=== PATIENT | female | born 2005 | race Caucasian/White ===

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

== ENCOUNTER 2025-07-03 18:05 | Emergency (ER) | payer MEDICAID, SELFPAY ==
--- OUTSIDE RECORDS SUMMARY | 2024-07-17 10:00 | XMS_ITS ---
Author Organization [facility] Address [address] [place] [address] Care Team Providers Care Supervisor Malted Milk Name Role Phone Chris Robles Primary Care Provider Chris Robles Unavailable Unavailable REASON FOR VISIT Mood Swings Encounters Encounter Location Date Provider Diagnosis [facility] [address] [place] [address] 07/17/2024 Chris Robles Plan Of Treatment No Information Progress Notes * Tootie PERALESDOB:2005 ( 20 yo F)Acc No.[id number]:07/17/2024 Progress Notes Patient: Tootie SMITH Provider: Germaine Robles MD :2005 A ge:19 Y S ex:Female Date:07/17/2024 Address:[id number] Subjective: * Chief Complaints: * 1 . Mood Swings. * Medical History: Objective: * Vitals: Assessment: Plan: * Treatment: * * Electronic signature of Lionel Robles MD FAAP on 07/03/2025 at 06:24 PM EDT Sign off status: Pending * Provider: Germaine Robles MD Date: Generated for Printi ng/Faxing/eTransmitting on: 06:24 PM EDT
--- OUTSIDE RECORDS SUMMARY | 2024-12-23 17:30 | XMS_ITS ---
Author Organization [facility] Address [address] [facility] [address] [place] [address] Care Team Providers Care Airline Hostess Name Role Phone Chris Robles Primary Care Provider Chris Robles Unavailable Unavailable Migration, Provider Unavailable Unavailable REASON FOR VISIT Multum To Medispan Conversion Encounter Medications Medication SIG (Take, Route, Fr equency, Duration) Notes Start Date End Date Status Erythromycin 5 MG/GM 1 sher in each affec johnna eye 4 times a day Active Encounters Encounter Location Date Provider Diagnosis [facility] [address] [facility] [address] [place] [address] 12/23/2024 Provider Migration Plan Of Treatment No Information Progress Notes * SOLEDADTootieDOB:2005 ( 20 yo F)Acc No.[id number]:12/23/2024 Patient: Tootie SMITH Provider: Sona cortes Migration :2005 A ge:19 Y S ex:Female Date:12/23/2024 Address:[address] [id number] Pcp:Chris Robles Subjective: * Chief Complaints: * 1 . Multum To Medispan Conversion Encounter. * Medical History: * Medications: T aking Erythromycin 5 MG/GM Ointment 1 sher in each affected eye 4 times a day Objective: * Vitals: Assessment: Plan: * Treatment: * * Electronic signature of Prov ider Migration on 07/03/2025 at 06:24 PM EDT Sign off status: Pending * Provider: Sona cortes Migration Date: 0 12/23/2024 Generated for Steve quach/Mayra/Clarence on: 1 06:24 PM EDT
[2025-07-03 18:08] VITALS: BP 132/70; PULSE 63; RESP 18; TEMP 36.4; O2SAT 100; BMI 23.0
--- OUTSIDE RECORDS SUMMARY | 2025-07-03 18:24 | XMS_ITS | Patient Health Record ---
Author Organization [facility] Address [address] [place] [address] Care Team Providers Care Livestock Ranch Hand Name Role Phone Chris Robles Primary Care Provider [phone] Chris Robles Unavailable Unavailable Eileen Higuera Unavailable [phone] Migration, Provider Unavailable Unavailable Allergies No Known Allergies Results Component Value Reference Range Notes Rapid Strep Reviewed date:12/28/2024 03:40:19 PM Interpretation:Negative Performing Lab: Notes/Report: Negative CULTURE, THROAT (394) Reviewed date:01/01/2025 11:48:52 AM Interpretation: Performing Lab:[facility], [facility] [address] [facility] Thomas Salcedo Notes/Report: NON-FASTING CULTURE, THROAT SEE NOTE CULTURE, THROAT Micro Number: [id number] Test Status: Final Specimen Source: Throat Specimen Quality: Adequate Result: Heavy growth of Beta-hemolytic Streptococcus, not group A,C or G Beta-hemolytic streptococci are predictably susceptible to Penicillin and other beta-lactams. Susceptibility testing not routinely performed. Please contact the laboratory within 3 days if susceptibility testing is desired. COMMENT: Normal oropharyngeal yris also present. Reason For Referral Reason Medical Records - DD S Referral Organization [facility] BRIAN MATHIS Referring Provider First Name Chris Referring Provider Last Name Margaret Referring Provider Speciality Internal M edicine Referral Priority Routine Medications Medication SIG (Take, Route, Frequency, Duration) Notes Start Date End Date Status predniSONE 20 MG 3 tabs orally once a day for two days, then 2 daily for 2 days, then one daily for two days; Duration: 6 day(s) 04/11/2025 Active Triamcinolone Acetonide 0.5 % 1 sher applied topically 2 times a day; Duration: 7 day(s) 04/11/2025 Active Fexofenadine HCl 180 MG 1 tab(s) orally once a day; Duration: 30 day(s) 04/11/2025 Active Famotidine 20 MG 1 tablet at bedtime as needed Orally twice a day; Duration: 10 days 04/11/2025 Active Problems Problem Type SNOMED Code ICD Code Onset Dates Problem Status W/U Status Risk Notes Problem Seasonal allergic rhinitis (096530798) Seasonal allergic rhinitis (J30.2) Active confirmed Problem Asthma without status asthmaticus (61307548) RAD (reactive airway disease) (J45.909) Active confirmed Vital Signs Heart Rate 74 /min 04/11/2025 Temperature 97.6 degrees Fahrenheit 04/11/2025 Blood pressure diastolic 60 mm Hg 04/11/2025 Height 62.2 in 04/11/2025 Blood pressure systolic 96 mm Hg 04/11/2025 Weight 124.4 lbs 04/11/2025 BMI 22.6 kg/m2 04/11/2025 Encounters Encounter Location Date Provider Diagnosis [facility] [address] [place] [address] 12/23/2024 Provider Migration [facility] [address] [place] [address] 12/28/2024 Eileen McNees Sore throat J02.9 and Tonsillitis J03.90 [facility] [address] [place] [address] 04/11/2025 Chris Besson Hives L50.9 and Irritant contact dermatitis due to plants, except food L24.7 Assessments Encounter Date Diagnosis (ICD Code) Assessment Notes Treatment Notes Treatment Clinical Notes Section Notes 04/11/2025 Irritant contact dermatitis due to plants, except food (ICD-10 - L24.7) 04/11/2025 Hives (ICD-10 - L50.9) 12/28/2024 Sore throat (ICD-10 - J02.9) 12/28/2024 Tonsillitis (ICD-10 - J03.90) Rapid strep negative, however 3-4+ exudative tonsils and moderately tender LAD. Broad spectrum coverage pending CX. Prescribed antibiotics as stated above and stressed importance of finishing complete course of antibiotics. Do not let anyone drink after the patient. Throw away toothbrush after abx complete. Discussed etiology and expected course of illness. Continue supportive care with PRN antipyretics. Encourage PO hydration. 04/11/2025 Other Patient appears to have poison eleonora, diffuse and spread in nature. No rash on face. no other systemic symptoms. Patient has tried OTC treatment without any improvement of symptoms. Rx sent for oral steroids and topical steroids. return precautions discussed. Patient was understanding of the plan. Plan Of Treatment Pending Test Test Name Order Date N-Urinalysis 11/02/2007 H-THROAT CULTURE 08/06/2011 H-STREP SCREEN (RAPID) 08/06/2011 H-STREP SCREEN (RAPID) 01/02/2010 Insurance Providers Payer Name Payer Address Payer Phone Subscriber Number Group Number Insured Name Patient Relationship to Insured Coverage Start Date Coverage End Date [employer] [address] [place] [address] [id number] Tootie Rowe Self - patient is the insured Medical (General) History Medical History History ICD Code RAD Seasonal allergies Surgical History Surgery Date(Month/Year) rt hand pinky surgery 2020 Hospitalization History Reason Date(Month/Year) -[facility] 04/2023
--- OUTSIDE RECORDS SUMMARY | 2025-07-03 18:25 | XMS_ITS | Patient Health Record ---
Author Organization [facility] Address [address] [place] [address] Care Team Providers Care Supervisor Blood Name Role Phone papi peres Primary Care Provider Unavailabl e Reason For Referral No Information Problems Problem Type SNOMED Code ICD Code Onset Dates Problem Status W/U Status Risk Notes Problem Mild intermittent asthma (713500776) Mild intermittent asthma, unspecified whether complicated (J45.20) Active confirmed Plan Of Treatment No Information Insurance Providers Payer Name Payer Address Payer Phone Subscriber Number Group Number Insured Name Patient Relationship to Insured Coverage Start Date Coverage End Date [facility] MED[facility] [address] [address] [place] [phone] [id number] JARVIS PERALES Self - patient is the insured Medical (General) History Medical History History ICD Code slight mental disability asthma Surgical History Surgery Date(Month/Year) finger surgery Jul 2018
--- NOTE | 2025-07-03 18:30 | ED_ITS ---
<Statement entered by Prosper Guzman DO - 07/03/25 19:19> I was consulted by the PETAR, and we discussed the complexity of problems being addressed. I approved the treatment and management plan for this patient's care in the emergency department, thus performing a substantive portion of the medical decision making. I independently evaluated this patient as well. She states that for prolonged period of time she has had tooth decay of the left mandibular molar. She states that this is causing her significant amounts of pain and she is fearing that there is a developing infection. She has established follow-up with a dentist who is planning to evaluate her for dental intervention. There is no evidence of periapical abscess or fluctuance along the gumline to suggest periapical abscess versus gingival abscess on exam. There is a large decayed portion of the tooth which is questionable chipped tooth versus deep dental carry. We discussed with the patient options for pain control including viscous lidocaine, NSAIDs, and dental blocks. She would like to proceed with a dental block. I assisted the PETAR with performing a inferior alveolar nerve block on the left. Patient tolerated this procedure well and achieved complete anesthesia. We opted to treat the patient with antibiotics and have strongly advised her to follow-up with her dentist. Prosper Guzman DO Discharge Plan Disposition Patient Disposition: Home, Self-Care Condition: Good Prescriptions Prescriptions: New amoxicillin-pot clavulanate 875-125 mg tablet 1 tab PO BID 7 Days Qty: 14 0RF No Action amoxicillin-pot clavulanate 875-125 mg Tablet 1 tab PO Q12H Qty: 20 0RF Referrals Follow up/Referrals: Chris Robles MD [Primary Care Provider, Internal Medicine] - See instructions Activity Restrictions/Add. Instructions Additional Instructions/Restrictions: Please follow-up with your dental provider in the upcoming days/weeks. Please return to the emergency department with any worsening signs or symptoms. Your nerve block may provide relief for up to 5 to 6 hours, you may experience numbness and tingling in your left side of your jaw/face for 5 to 6 hours. Please take your antibiotic medication as prescribed twice daily for 7 days with food. Please utilize ibuprofen and Tylenol as needed for symptomatic relief. Clinical Impressions Clinical Impression: Pain due to dental caries Instructions Patient Instructions: DI for Tooth Decay, DI for Dental Pain Print Language Print Language: Swazi Discharge ED Provider: Prosper Guzman General Adult HPI General Chief complaint: PAIN Stated complaint: left side tooth pain Time Seen by Provider: 07/03/25 18:15 Mode of Arrival: Ambulatory Source of Information: Patient and Relative Description of Symptoms (Recalled from ER Triage Doc. by RN): Pt c/o pain in left jaw area that radiates into the left eye and ear. History of Present Illness HPI narrative: 20-year-old female presents the emergency department with left-sided dental/tooth pain, that has been ongoing for the last 1 to 2 months, patient that she had a dental appointment 1 to 2 months ago, was told she needed some work done on that side, has not yet followed up. Patient denies any fever chills chest pain shortness of breath nausea vomiting constipation diarrhea, no abdominal pain, no urinary type symptomatology, patient is a current everyday smoker (vapes), denies alcohol or drug use, patient has no other real relevant past medical history takes no other medications daily at home. Initial triage vitals are unremarkable. Please note that above description of symptoms, in this electronic medical record under categorization of recalled from ER triage doctor by RN are reflective of an initial nursing assessment, however, is not reflective of my full history and physical exam that was personally taken and clarified. Consequentially, this preceding description of symptoms, which may include the patient's categorized chief complaint in the EMR, do not reflect my personal clinical impression, and the ultimate description of history of present illness and patient stated complaints should be deferred to this section of the note. Unless stated otherwise or congruent with this section of the note, additional signs, symptoms, or incongruence should be interpreted as inaccurate with my clinical impression. Onset (ago): month(s) Related Data Previous Rx's ?Medication ?Instructions ?Recorded amoxicillin 875 mg-potassium 1 tab PO Q12H #20 tabs clavulanate 125 mg tablet amoxicillin 875 mg-potassium 1 tab PO BID 7 days #14 t abs 07/03/25 clavulanate 125 mg tablet Allergies Allergy/AdvReac Type Severity Reaction Status Date / Time No Known Allergies Allergy Verified 11/08/23 09:56 [facility] Disclaimer: The information contained in this section may have been updated after the patient was seen, as this information can be updated by other users. Medical History (Updated 07/03/25 @ 18:51 by LAUREL Alexandre) No significant past medical history Social History (Updated 10/07/23 @ 22:17 by Reuben Tolliver MD) Smoking Status: Current every day smoker alcohol intake: never current occupational status: other Travel in the last 8 weeks?: None Have you lived/traveled outside [place] in past 30 days?: No Contact w/someone who lives/traveled outside [place] past 30 days?: No Exposure to someone with infectious disease in past 14 days?: No Do you have a fever (greater than 100.4 F or 38 C)?: No Have you tested positive for COVID-19?: No Exposed to someone with COVID-19 in past 14 days?: No Do you have a sore throat?: No Do you have a cough?: No Do you have any weakness?: No Do you have any diarrhea?: No Are you experiencing any unusual bleeding?: No Do you have any muscle aches/pain?: No Do you have any abdominal pain?: No Are you experiencing loss of taste or smell?: No ROS Obtained: Yes All systems reviewed & no additional complaints except as documented Physical Exam General General appearance: alert and in no apparent distress Head Head exam: atraumatic and normocephalic Eye Eye exam: Present PERRL and EOMI ENT ENT exam: Present normal oropharynx, mucous membranes moist and other (Patient has a first premolar on the left, that has some obvious poor dentition, area of avulsion of tooth, no periodontal or periapical abscess to be amicable to drainage, uvula midline, normal oropharynx, no oropharyngeal edema/erythema.) Neck Neck exam: Present normal inspection Chest Chest inspection: Present normal inspection and symmetric chest wall rise Respiratory Respiratory exam: Present normal lung sounds bilaterally; Absent respiratory distress Cardiovascular Cardiovascular exam: Present regular rate and normal rhythm Abdominal Exam Abdominal exam: Present soft; Absent tenderness Extremities Exam Extremities exam: Present normal inspection Neurological Exam Neurological exam: Present alert and oriented X3 Psychiatric Psychiatric exam: Present normal affect Skin Skin exam: Present warm and dry Medical Decision Making Medical Records Medical records reviewed: Yes I reviewed the patient's medical records. Screening: Per USPSTF and CDC recommendations, given the prevalence of disease in our region, it is our hospital?s policy to screen for HIV and viral Hepatitis for all patients aged 18 and over and those with ongoing risk factors. Tae Inquiry Pt receiving controlled substance: No Tae was queried for this patient: No Vital Signs: 07/03/25 18:08 Temperature 97.5 F L Temperature Source Oral Pulse Rate [Right] 63 Respiratory Rate 18 Blood Pressure [Right Arm] 132/70 Blood Pressure Mean [Right Arm] 90 Blood Pressure Source [Right Arm] Automatic Cuff Blood Pressure Position [Right Arm] Sitting 02 Sat by Pulse Oximetry 100 Oxygen Delivery Method Room Air Orders (Tests/Meds): ED MEDICATIONS Discontinued Medications Generic Name Dose Route Start Last Admin Trade Name Sandra PRN Reason Stop Dose Admin Acetaminophen 500 mg 07/03/25 18:23 07/03/25 18:35 Acetaminophen 500mg Tab PO 07/03/25 18:24 500 mg ONCE ONE Administration Bupivacaine HCl 10 mg 07/03/25 18:23 07/03/25 18:35 Bupivacaine 0.5% 10ml Vial IJ 07/03/25 18:24 10 mg ONCE ONE Administration Ibuprofen 600 mg 07/03/25 18:19 07/03/25 18:35 Ibuprofen 600 Mg Tablet PO 07/03/25 18:20 600 mg ONCE ONE Administration Medical Decision Narrative: 20-year-old female presents the emergency department with left-sided dental pain/tooth pain for 1 to 2 months, differential diagnose include but not limited to, peridental abscess, periapical abscess, dental caries, pulpitis, avulsed tooth among others. I discussed this patient's case with the attending physician Dr. Guzman. Will give the patient 600 mg Motrin and 500 mg p.o. Tylenol, as well as dental balls, did offer infraalveolar dental nerve block to the patient at the bedside, patient would like to proceed with this for extra analgesia as she does not have a follow-up dental appointment until a few days. All risk and benefit associated with dental block discussed with patient at bedside patient voiced understanding. I along with the attending physician Dr. Guzman performed noted infraalveolar nerve block, see full procedure note for details, patient tolerated procedure well, algesia achieved. Patient was given strict ED return precautions. Patient will need to follow-up with dental provider in the upcoming days. Will prescribe the patient 875 mg p.o. Augmentin twice daily for 7 days for dental infection prophylaxis, patient voiced understanding and agreement with current treatment plan/discharge plan. Procedures Nerve Block Nerve Block 1: Time out performed: No Local Anesthetic: lidocaine 1% and bupivacaine 0.5% Amount of anesthesia used (mL): 3 Side: Left Intraoral Nerve Block: inferior alveolar Procedure Successful: Yes Patient Tolerated Procedure: well and no complications Complications: none Critical Care Critical Care Time Critical Care Time: No
[2025-07-03] MEDS: IBUPROFEN 600 MG TABLET PO (18:35)
[2025-07-03] MEDS: ACETAMINOPHEN 500MG TAB 500 MG PO (18:35)
[2025-07-03 18:57] VITALS: BP 130/80; PULSE 78; RESP 20; TEMP 36.8; O2SAT 98
[2025-07-03] MEDS: LIDOCAINE 2% VISCOUS SOL 15ML UDC 15 ML PO (18:57)
== END 2025-07-03 18:58 | disposition home or self-care (01) ==
PROVIDERS: Emergency Provider Student in an Organized Health Care Education/Training Program; PCP Internal Medicine Adolescent Medicine
DX: R68.84 Jaw pain (principal); K08.89 Other specified disorders of teeth and supporting structures; F17.290 Nicotine dependence, other tobacco product, uncomplicated
CPT/HCPCS: 99282; 99283; J0665